=== PATIENT | female | born 1955 | race Caucasian/White ===

== ENCOUNTER 2018-05-19 11:22 | Inpatient (IN) | payer BC ==
[~2018-05-19] VITALS: Ht 162.6 cm; Wt 74.4 kg
[2018-05-19] MEDS ORDERED: ONDANSETRON ODT 4 MG ONE ×2 (11:48→18:10)
[2018-05-19] MEDS ORDERED: HYDROmorphone 2 MG/ML, 1ML ONE ×2 (11:51→12:45)
[2018-05-19] MEDS ORDERED: ONDANSETRON ODT 4 MG PO ONE (12:00)
[2018-05-19] MEDS ORDERED: HYDROmorphone 1 MG/ML, 1ML IM ONE ×2 (12:00→13:00)
[2018-05-19] MEDS ORDERED: HYDR-3307 PO (12:43)
[2018-05-19] MEDS ORDERED: SODIUM CHLORIDE 0.9% 1,000 ML IV ONE (13:49)
[2018-05-19] MEDS ORDERED: SODIUM CHLORIDE FLUSH 10ML SYR IVF ONE (14:00)
[2018-05-19] MEDS ORDERED: LORazepam 2 MG/ML, 1ML IVPush ONE (14:00)
[2018-05-19] MEDS ORDERED: DIPHENHYDRAMINE 50 MG/ML, 1ML IVPush ONE (14:00)
[2018-05-19 14:09] LABS: BASOPHILS # (AUTO) 0.05 x10^3/uL (0-0.1); BASOPHILS % (AUTO) 1 % (0-1); EOSINOPHILS # (AUTO) 0.08 x10^3/uL (0-0.4); EOSINOPHILS % (AUTO) 1 % (1-7); LYMPHOCYTES # (AUTO) 2.17 x10^3/uL (1-3.4); LYMPHOCYTES % (AUTO) 21 % (22-44); MD NO; MEAN CORPUSCULAR HEMOGLOBIN 32.6 pg (27.0-34.8); MEAN CORPUSCULAR HGB CONC 34.3 g/dL (32.4-35.8); MEAN CORPUSCULAR VOLUME 95.2 fL (80-100); MEAN PLATELET VOLUME 8.2 fL (7.4-10.4); MONOCYTES # (AUTO) 0.73 x10^3/uL (0.2-0.8); MONOCYTES % (AUTO) 7 % (2-9); NEUTROPHILS # (AUTO) 7.38 x10^3/uL (1.8-6.8); NEUTROPHILS % (AUTO) 71 % (42-75); PLATELET COUNT 226 x10^3/uL (130-400); RED BLOOD COUNT 4.66 x10^6/uL (3.82-5.3); RED CELL DISTRIBUTION WIDTH 13.5 % (9.6-15.2)
[2018-05-19 14:21] LABS: ALBUMIN 4.7 g/dL (3.4-5.0); ANION GAP 10 mmol/L (5-15); CALCIUM 9.6 mg/dL (8.5-10.1); CHLORIDE 103 mmol/L (98-107)
[2018-05-19 14:25] LABS: ALANINE AMINOTRANSFERASE 26 U/L (12-78); ALKALINE PHOSPHATASE 78 U/L (45-117); BILIRUBIN,TOTAL 0.6 mg/dL (0.2-1.0); CREATININE 0.84 mg/dL (0.55-1.02); TOTAL PROTEIN 8.5 g/dL (6.4-8.2)
[2018-05-19 14:30] LABS: INTERNATIONAL NORMALIZED RATIO 0.97 (0.93-1.1); PROTHROMBIN TIME 10.1 Seconds (9.6-11.5)
[2018-05-19] MEDS ORDERED: SODIUM CHLORIDE FLUSH 10ML SYR IVF PRN (14:30)
[2018-05-19] MEDS ORDERED: ALPR-475 PO (14:32)
[2018-05-19] MEDS ORDERED: ALPR1TAB2 PO (14:32)
[2018-05-19] MEDS ORDERED: LEVO100T PO (14:33)
[2018-05-19] MEDS ORDERED: LORazepam 2 MG/ML, 1ML ONE (15:02)
[2018-05-19] MEDS ORDERED: FENTANYL PF 100 MCG/2ML IV ONE (15:30)
[2018-05-19] MEDS ORDERED: FENTANYL PF 100 MCG/2ML ONE (15:34)
[2018-05-19 15:45] VITALS: BP 127/77
[2018-05-19] MEDS ORDERED: hydrALAzine 20 MG/ML, 1ML IV PRN (17:00)
[2018-05-19] MEDS ORDERED: ACETAMINOPHEN 325 MG TABLET PO PRN (17:00)
[2018-05-19] MEDS ORDERED: LABETALOL 5MG/ML, 20ML IV PRN (17:00)
[2018-05-19] MEDS ORDERED: FENTANYL PF 100 MCG/2ML IV PRN (17:00)
[2018-05-19] MEDS ORDERED: OXYcodone 5 MG/5 ML ORAL.SOL UDC PO PRN (17:00)
[2018-05-19] MEDS ORDERED: ONDANSETRON 2MG/ML, 2ML IV PRN (17:00)
[2018-05-19] MEDS ORDERED: HALOPERIDOL 5 MG/ML IV PRN (17:00)
[2018-05-19] MEDS ORDERED: MEPERIDINE/PF 25MG/0.5ML IVPush PRN (17:00)
[2018-05-19] MEDS ORDERED: HYDROmorphone 1 MG/ML, 1ML IV PRN ×3 (17:00→18:00)
[2018-05-19] MEDS ORDERED: HYDROmorphone 2 MG/ML, 1ML IV PRN (18:00)
[2018-05-19] MEDS: ONDANSETRON ODT 4 MG PO PRN (18:12)
[2018-05-19 18:23] VITALS: BP 122/73
[2018-05-19] MEDS: DOCUSATE 100 MG CAPSULE PO SCH (20:10)
[2018-05-19] MEDS: KETOROLAC 30 MG/1 ML IV SCH (20:10)
[2018-05-19] MEDS: HYDROcodone/APAP 10/325 MG TABLET PO PRN (20:19)
[2018-05-20 00:59] VITALS: BP 120/74
[2018-05-20] MEDS: HYDROcodone/APAP 10/325 MG TABLET PO PRN ×6 (01:03→20:37)
[2018-05-20] MEDS: KETOROLAC 30 MG/1 ML IV SCH ×2 (04:13→12:09)
[2018-05-20] MEDS: ONDANSETRON ODT 4 MG PO PRN (06:52)
[2018-05-20 07:35] VITALS: BP 115/64
[2018-05-20] MEDS: DOCUSATE 100 MG CAPSULE PO SCH ×2 (09:00→20:09)
[2018-05-20 12:55] VITALS: BP 113/65
[2018-05-20] MEDS: ONDANSETRON 2MG/ML, 2ML IVPush PRN ×2 (13:37→20:09)
[2018-05-20 19:00] VITALS: BP 146/76
[2018-05-21] MEDS: HYDROcodone/APAP 10/325 MG TABLET PO PRN ×6 (00:51→21:38)
[2018-05-21 05:08] VITALS: BP 111/68
[2018-05-21 07:20] VITALS: BP 114/72
[2018-05-21] MEDS: DOCUSATE 100 MG CAPSULE PO SCH ×2 (09:00→21:38)
[2018-05-21] MEDS: ONDANSETRON 2MG/ML, 2ML IVPush PRN ×3 (11:23→22:27)
[2018-05-21 12:48] VITALS: BP 134/79
[2018-05-21 19:54] VITALS: BP 112/70
[2018-05-22] MEDS: HYDROcodone/APAP 10/325 MG TABLET PO PRN ×6 (01:34→21:28)
[2018-05-22 02:07] VITALS: BP 112/70
[2018-05-22] MEDS: ONDANSETRON 2MG/ML, 2ML IVPush PRN ×2 (06:43→12:38)
[2018-05-22 07:17] VITALS: BP 119/73
[2018-05-22] MEDS: DOCUSATE 100 MG CAPSULE PO SCH ×2 (07:36→21:00)
[2018-05-22 12:11] VITALS: BP 143/75
[2018-05-22] MEDS: ONDANSETRON ODT 4 MG PO PRN ×2 (12:32→18:20)
[2018-05-22 19:55] VITALS: BP 108/65
[2018-05-23] MEDS: HYDROcodone/APAP 10/325 MG TABLET PO PRN ×5 (01:45→18:01)
[2018-05-23] MEDS: ONDANSETRON ODT 4 MG PO PRN ×3 (02:01→15:03)
[2018-05-23 03:38] VITALS: BP 107/69
[2018-05-23] MEDS: DOCUSATE 100 MG CAPSULE PO SCH (08:27)
[2018-05-23] MEDS ORDERED: OXYC-302 PO (09:14)
[2018-05-23] MEDS ORDERED: TRAM50TA2 PO (09:17)
[2018-05-23 09:47] VITALS: BP 126/50
[2018-05-23 15:32] VITALS: BP 102/72
== END 2018-05-23 18:05 | DRG 563 ==
LOC: ED 13:11 → EDIP 14:19 → 4NOR 15:46
PROVIDERS: ADMIT Orthopaedic Surgery; ATTEND Orthopaedic Surgery
DX: S82.144A Nondisplaced bicondylar fracture of right tibia, initial encounter for closed fracture (principal); M25.00 Hemarthrosis, unspecified joint; G61.0 Guillain-Barre syndrome; E06.3 Autoimmune thyroiditis; G89.11 Acute pain due to trauma; W18.39XA Other fall on same level, initial encounter; M54.9 Dorsalgia, unspecified; G89.29 Other chronic pain; Y93.89 Activity, other specified; Y92.89 Other specified places as the place of occurrence of the external cause; Y99.8 Other external cause status; Z90.710 Acquired absence of both cervix and uterus; Z88.6 Allergy status to analgesic agent; Z88.0 Allergy status to penicillin; Z88.8 Allergy status to other drugs, medicaments and biological substances
CPT/HCPCS: 36415; 71045; 80053; 85025; 85610; 85730; 93005; 96372; 96374; G0378; J1170; J1885; J2405; J3010; Q0162; J2060; J7030

== ENCOUNTER 2019-09-16 19:51 | Inpatient (IN) | payer BC ==
[~2019-09-16] VITALS: Ht 163.8 cm; Wt 75.1 kg
[~2019-09-16 19:51] MED LIST: ALPR0.5T7 PO; ALPR1TAB2 PO; HYDR-36 PO; LEVO100T PO; OXYC-302 PO; TRAM50TA2 PO
[2019-09-16] MEDS ORDERED: HYDROmorphone 1 MG/ML, 1ML INJ ONE (20:22)
[2019-09-16] MEDS ORDERED: ONDANSETRON 2MG/ML, 2ML ONE (20:22)
[2019-09-16] MEDS ORDERED: HYDROmorphone 2 MG/ML, 1ML IVPush PRN ×2 (20:30→23:30)
[2019-09-16] MEDS ORDERED: ONDANSETRON 2MG/ML, 2ML IVPush ONE (20:30)
--- NOTE | 2019-09-16 21:15 | NUR ---
PT RESTING IN BED. FAMILY AT BS. MONITOR IN PLACE. MEDICATED PER OCT.
--- NOTE | 2019-09-16 21:49 | NUR ---
RPT CALLED TO [facility]. PT AWAITING TRANSFER.
[2019-09-16 22:26] VITALS: BP 161/94
[2019-09-16] MEDS ORDERED: LIOT5TAB11 PO (22:48)
[2019-09-16] MEDS ORDERED: ASPI-515 PO (22:58)
[2019-09-16] MEDS ORDERED: ASPI-496 PO (22:59)
[2019-09-16] MEDS ORDERED: BISACODYL 10 MG SUPP PR PRN (23:30)
[2019-09-16] MEDS ORDERED: TEMAZEPAM 15 MG CAPSULE PO PRN (23:30)
[2019-09-16] MEDS ORDERED: LIDODERM 5% PATCH TD PRN (23:30)
[2019-09-16] MEDS: LACTATED RINGERS 1,000 ML IV SCH (23:47)
[2019-09-17] MEDS: LORazepam 2 MG/ML, 1ML IVPush PRN ×5 (00:27→23:26)
[2019-09-17 00:48] VITALS: BP 153/80
[2019-09-17] MEDS: ONDANSETRON 2MG/ML, 2ML IVPush PRN ×3 (03:49→20:17)
[2019-09-17 04:20] VITALS: BP 163/100
[2019-09-17] MEDS ORDERED: FENTANYL PF 100 MCG/2ML IV ONE (04:30)
[2019-09-17 05:39] LABS: BASOPHILS # (AUTO) 0.02 x10^3/uL (0-0.1); BASOPHILS % (AUTO) 0 % (0-1); EOSINOPHILS # (AUTO) 0.09 x10^3/uL (0-0.4); EOSINOPHILS % (AUTO) 2 % (1-7); LYMPHOCYTES # (AUTO) 1.24 x10^3/uL (1-3.4); LYMPHOCYTES % (AUTO) 21 % (22-44); MD NO; MEAN CORPUSCULAR HEMOGLOBIN 34.8 pg (27.0-34.8); MEAN CORPUSCULAR HGB CONC 33.5 g/dL (32.4-35.8); MEAN CORPUSCULAR VOLUME 104.1 fL (80-100); MEAN PLATELET VOLUME 7.2 fL (7.4-10.4); MONOCYTES # (AUTO) 0.66 x10^3/uL (0.2-0.8); MONOCYTES % (AUTO) 11 % (2-9); NEUTROPHILS # (AUTO) 4.01 x10^3/uL (1.8-6.8); NEUTROPHILS % (AUTO) 67 % (42-75); PLATELET COUNT 185 x10^3/uL (130-400); RED BLOOD COUNT 4.06 x10^6/uL (3.82-5.3); RED CELL DISTRIBUTION WIDTH 16.3 % (9.6-15.2)
[2019-09-17 05:48] LABS: ALBUMIN 3.4 g/dL (3.4-5.0); ANION GAP 10 mmol/L (5-15); CALCIUM 8.3 mg/dL (8.5-10.1); CHLORIDE 108 mmol/L (98-107)
[2019-09-17 05:53] LABS: ALANINE AMINOTRANSFERASE 57 U/L (12-78); ALKALINE PHOSPHATASE 155 U/L (45-117); BILIRUBIN,TOTAL 1.5 mg/dL (0.2-1.0); CREATININE 0.62 mg/dL (0.55-1.02); TOTAL PROTEIN 6.6 g/dL (6.4-8.2)
[2019-09-17 08:02] VITALS: BP 162/88
[2019-09-17] MEDS ORDERED: morphine SULFATE/PF 0.5 MG/ML, 10ML IV PRN (08:30)
[2019-09-17] MEDS ORDERED: POTASSIUM CHLORIDE 20 MEQ in SODIUM CHLORIDE 0.9% 250 ML IV ONE (09:00)
[2019-09-17] MEDS: MORPHINE SULFATE 4 MG/ML, 1ML IV PRN ×5 (09:41→23:27)
[2019-09-17] MEDS: LACTATED RINGERS 1,000 ML IV SCH ×2 (12:45→21:44)
[2019-09-17 13:56] VITALS: BP 158/83
[2019-09-17 19:12] VITALS: BP 134/80
[2019-09-18 02:04] VITALS: BP 155/96
[2019-09-18] MEDS: ONDANSETRON 2MG/ML, 2ML IVPush PRN ×4 (02:09→23:06)
[2019-09-18] MEDS: MORPHINE SULFATE 4 MG/ML, 1ML IV PRN ×7 (02:09→23:06)
[2019-09-18] MEDS: LORazepam 2 MG/ML, 1ML IVPush PRN ×2 (03:24→07:59)
[2019-09-18] MEDS: LACTATED RINGERS 1,000 ML IV SCH ×3 (05:47→19:56)
[2019-09-18 05:53] LABS: ALBUMIN 3.2 g/dL (3.4-5.0); ANION GAP 15 mmol/L (5-15); CALCIUM 8.3 mg/dL (8.5-10.1); CHLORIDE 104 mmol/L (98-107)
[2019-09-18 06:01] LABS: ALANINE AMINOTRANSFERASE 46 U/L (12-78); ALKALINE PHOSPHATASE 136 U/L (45-117); BILIRUBIN,TOTAL 1.4 mg/dL (0.2-1.0); CHOL/HDL RATIO 3.6; CHOLESTEROL, TOTAL 210 mg/dL (140-239); CREATININE 0.49 mg/dL (0.55-1.02); HDL CHOL % 28 % (28-40); HDL CHOLESTEROL (DIRECT) 58 mg/dL (40-60); LDL CHOLESTEROL,CALCULATED 125 mg/dL (54-169); LDL/HDL RATIO 2.2 (0.5-3.0); TOTAL PROTEIN 6.2 g/dL (6.4-8.2); TRIGLYCERIDES 133 mg/dL (50-200); VLDL CHOLESTEROL 27 mg/dL (0-25)
[2019-09-18 06:22] LABS: MEAN CORPUSCULAR HEMOGLOBIN 34.4 pg (27.0-34.8); MEAN CORPUSCULAR HGB CONC 33.2 g/dL (32.4-35.8); MEAN CORPUSCULAR VOLUME 103.6 fL (80-100); PLATELET COUNT 180 x10^3/uL (130-400); RED BLOOD COUNT 4.04 x10^6/uL (3.82-5.3); RED CELL DISTRIBUTION WIDTH 15.6 % (9.6-15.2)
[2019-09-18 06:23] LABS: BASOPHILS # (AUTO) 0.06 x10^3/uL (0-0.1); BASOPHILS % (AUTO) 1 % (0-1); EOSINOPHILS # (AUTO) 0.14 x10^3/uL (0-0.4); EOSINOPHILS % (AUTO) 2 % (1-7); LYMPHOCYTES % (AUTO) 20 % (22-44); MD SCAN; MONOCYTES # (AUTO) 0.92 x10^3/uL (0.2-0.8); MONOCYTES % (AUTO) 11 % (2-9); NEUTROPHILS # (AUTO) 5.64 x10^3/uL (1.8-6.8); NEUTROPHILS % (AUTO) 67 % (42-75)
[2019-09-18] MEDS ORDERED: POTASSIUM CHLORIDE 40 MEQ in SODIUM CHLORIDE 0.9% 500 ML IV ONE (06:30)
[2019-09-18 08:59] VITALS: BP 153/90
[2019-09-18] MEDS ORDERED: PROMETHAZINE 25 MG/ML, 1ML IM PRN (12:30)
[2019-09-18] MEDS: MAGNESIUM OXIDE 400 MG TABLET PO SCH ×2 (13:30→20:12)
[2019-09-18 14:19] VITALS: BP 146/85
[2019-09-18] MEDS ORDERED: OMNIPAQUE 350 MG/ML, 100ML BOTTLE ONE (14:45)
[2019-09-18] MEDS: POTASSIUM CHLORIDE 20 MEQ TAB.ER.PRT PO SCH (17:00)
[2019-09-18 20:07] VITALS: BP 157/88
[2019-09-18 22:03] LABS: OCCULT BLOOD NEGATIVE (NEGATIVE)
[2019-09-19 01:20] VITALS: BP 145/91
[2019-09-19] MEDS ORDERED: LORazepam 2 MG/ML, 1ML IVPush ONE (02:00)
[2019-09-19] MEDS: LACTATED RINGERS 1,000 ML IV SCH ×2 (04:39→14:00)
[2019-09-19] MEDS ORDERED: ZIPRASIDONE 20 MG INJ IM ONE (06:00)
[2019-09-19] MEDS ORDERED: LORazepam 2 MG/ML, 1ML IV PRN ×4 (07:30)
[2019-09-19] MEDS ORDERED: FOLIC ACID 5 MG/ML IM ONE (07:30)
[2019-09-19] MEDS ORDERED: THIAMINE 200 MG in DEXTROSE 5% 50 ML IVPB ONE (07:30)
[2019-09-19 08:47] LABS: BASOPHILS # (AUTO) 0.02 x10^3/uL (0-0.1); BASOPHILS % (AUTO) 0 % (0-1); EOSINOPHILS # (AUTO) 0.04 x10^3/uL (0-0.4); EOSINOPHILS % (AUTO) 1 % (1-7); LYMPHOCYTES # (AUTO) 0.76 x10^3/uL (1-3.4); LYMPHOCYTES % (AUTO) 10 % (22-44); MD NO; MEAN CORPUSCULAR HEMOGLOBIN 34.5 pg (27.0-34.8); MEAN CORPUSCULAR HGB CONC 33.3 g/dL (32.4-35.8); MEAN CORPUSCULAR VOLUME 103.9 fL (80-100); MEAN PLATELET VOLUME 7.6 fL (7.4-10.4); MONOCYTES # (AUTO) 0.99 x10^3/uL (0.2-0.8); MONOCYTES % (AUTO) 13 % (2-9); NEUTROPHILS # (AUTO) 5.74 x10^3/uL (1.8-6.8); NEUTROPHILS % (AUTO) 76 % (42-75); PLATELET COUNT 175 x10^3/uL (130-400); RED BLOOD COUNT 4.09 x10^6/uL (3.82-5.3); RED CELL DISTRIBUTION WIDTH 15.6 % (9.6-15.2)
[2019-09-19] MEDS: POTASSIUM CHLORIDE 20 MEQ TAB.ER.PRT PO SCH ×2 (08:51→16:43)
[2019-09-19] MEDS: MAGNESIUM OXIDE 400 MG TABLET PO SCH ×2 (08:51→20:12)
[2019-09-19 08:53] LABS: ALANINE AMINOTRANSFERASE 48 U/L (12-78); ALBUMIN 3.6 g/dL (3.4-5.0); ANION GAP 15 mmol/L (5-15); CALCIUM 8.8 mg/dL (8.5-10.1); CHLORIDE 103 mmol/L (98-107); CREATININE 0.59 mg/dL (0.55-1.02)
[2019-09-19 08:58] LABS: ALKALINE PHOSPHATASE 138 U/L (45-117); BILIRUBIN,TOTAL 1.4 mg/dL (0.2-1.0); TOTAL PROTEIN 6.8 g/dL (6.4-8.2)
[2019-09-19 09:01] VITALS: BP 160/94
[2019-09-19] MEDS: CHLORDIAZEPOXIDE 25 MG CAPSULE PO SCH ×4 (09:54→21:11)
[2019-09-19] MEDS ORDERED: POTASSIUM CHLORIDE 40 MEQ in SODIUM CHLORIDE 0.9% 500 ML IV ONE (15:30)
[2019-09-19 20:03] VITALS: BP 130/87
[2019-09-19 22:39] LABS: OCCULT BLOOD NEGATIVE (NEGATIVE)
[2019-09-19 22:55] LABS: CLOSTRIDIUM DIFFICILE ANTIGEN NEGATIVE; CLOSTRIDIUM DIFFICILE TOXIN NEGATIVE (Negative)
[2019-09-19] MEDS: LORazepam 2 MG/ML, 1ML IV PRN (23:34)
[2019-09-20] MEDS: MORPHINE SULFATE 4 MG/ML, 1ML IV PRN ×5 (00:38→20:36)
[2019-09-20 02:56] VITALS: BP 133/81
[2019-09-20] MEDS: CHLORDIAZEPOXIDE 25 MG CAPSULE PO SCH ×2 (06:09→12:07)
[2019-09-20] MEDS: LACTATED RINGERS 1,000 ML IV SCH ×3 (06:09→20:50)
[2019-09-20 06:14] LABS: BASOPHILS # (AUTO) 0.03 x10^3/uL (0-0.1); BASOPHILS % (AUTO) 1 % (0-1); EOSINOPHILS # (AUTO) 0.19 x10^3/uL (0-0.4); EOSINOPHILS % (AUTO) 3 % (1-7); LYMPHOCYTES # (AUTO) 1.41 x10^3/uL (1-3.4); LYMPHOCYTES % (AUTO) 24 % (22-44); MD NO; MEAN CORPUSCULAR HEMOGLOBIN 34.1 pg (27.0-34.8); MEAN CORPUSCULAR HGB CONC 32.9 g/dL (32.4-35.8); MEAN CORPUSCULAR VOLUME 103.8 fL (80-100); MEAN PLATELET VOLUME 8.1 fL (7.4-10.4); MONOCYTES # (AUTO) 0.67 x10^3/uL (0.2-0.8); MONOCYTES % (AUTO) 11 % (2-9); NEUTROPHILS # (AUTO) 3.63 x10^3/uL (1.8-6.8); NEUTROPHILS % (AUTO) 61 % (42-75); PLATELET COUNT 166 x10^3/uL (130-400); RED BLOOD COUNT 3.87 x10^6/uL (3.82-5.3); RED CELL DISTRIBUTION WIDTH 15.3 % (9.6-15.2)
[2019-09-20 06:18] LABS: CHLORIDE 107 mmol/L (98-107)
[2019-09-20 06:41] LABS: ALANINE AMINOTRANSFERASE 38 U/L (12-78); ALBUMIN 2.9 g/dL (3.4-5.0); ALKALINE PHOSPHATASE 110 U/L (45-117); ANION GAP 11 mmol/L (5-15); BILIRUBIN,TOTAL 1.1 mg/dL (0.2-1.0); CALCIUM 8.4 mg/dL (8.5-10.1); CREATININE 0.45 mg/dL (0.55-1.02)
[2019-09-20] MEDS: LORazepam 2 MG/ML, 1ML IV PRN (08:00)
[2019-09-20] MEDS: POTASSIUM CHLORIDE 20 MEQ TAB.ER.PRT PO SCH (08:01)
[2019-09-20] MEDS: MAGNESIUM OXIDE 400 MG TABLET PO SCH ×2 (08:01→20:36)
[2019-09-20 08:09] VITALS: BP 158/88
[2019-09-20] MEDS ORDERED: POTASSIUM CHLORIDE 20 MEQ TAB.ER.PRT PO SCH (14:00)
[2019-09-20] MEDS ORDERED: LOPERAMIDE 2 MG CAPSULE PO PRN (14:00)
[2019-09-20] MEDS ORDERED: POTASSIUM CHLORIDE 20 MEQ TAB.ER.PRT PO ONE ×2 (14:00→17:00)
[2019-09-20] MEDS: OMEPRAZOLE 20 MG CAPSULE.DR PO SCH ×2 (14:14→20:36)
[2019-09-20] MEDS: ONDANSETRON 2MG/ML, 2ML IVPush PRN (14:14)
[2019-09-20 17:11] VITALS: BP 160/88
[2019-09-20 19:22] VITALS: BP 152/85
[2019-09-20] MEDS ORDERED: CHLORDIAZEPOXIDE 25 MG CAPSULE PO SCH (21:00)
[2019-09-21 01:58] VITALS: BP 136/87
[2019-09-21] MEDS: MORPHINE SULFATE 4 MG/ML, 1ML IV PRN ×3 (02:03→17:48)
[2019-09-21] MEDS: LACTATED RINGERS 1,000 ML IV SCH (05:09)
[2019-09-21 05:28] LABS: ALANINE AMINOTRANSFERASE 36 U/L (12-78); ANION GAP 8 mmol/L (5-15); CALCIUM 8.4 mg/dL (8.5-10.1); CHLORIDE 104 mmol/L (98-107); CREATININE 0.44 mg/dL (0.55-1.02)
[2019-09-21 05:31] LABS: ALKALINE PHOSPHATASE 104 U/L (45-117); BILIRUBIN,TOTAL 1.2 mg/dL (0.2-1.0); TOTAL PROTEIN 6.3 g/dL (6.4-8.2)
[2019-09-21 05:40] LABS: BASOPHILS # (AUTO) 0.03 x10^3/uL (0-0.1); BASOPHILS % (AUTO) 1 % (0-1); EOSINOPHILS # (AUTO) 0.27 x10^3/uL (0-0.4); EOSINOPHILS % (AUTO) 5 % (1-7); LYMPHOCYTES # (AUTO) 1.08 x10^3/uL (1-3.4); LYMPHOCYTES % (AUTO) 19 % (22-44); MD NO; MEAN CORPUSCULAR HEMOGLOBIN 34.4 pg (27.0-34.8); MEAN CORPUSCULAR HGB CONC 33.4 g/dL (32.4-35.8); MEAN PLATELET VOLUME 8.2 fL (7.4-10.4); MONOCYTES % (AUTO) 16 % (2-9); NEUTROPHILS # (AUTO) 3.33 x10^3/uL (1.8-6.8); NEUTROPHILS % (AUTO) 59 % (42-75); PLATELET COUNT 208 x10^3/uL (130-400); RED BLOOD COUNT 3.88 x10^6/uL (3.82-5.3); RED CELL DISTRIBUTION WIDTH 15.4 % (9.6-15.2)
[2019-09-21] MEDS: LEVOTHYROXINE 88 MCG TABLET PO SCH ×2 (06:26→07:12)
[2019-09-21] MEDS: ONDANSETRON 2MG/ML, 2ML IVPush PRN ×2 (06:45→15:30)
[2019-09-21] MEDS: LIOTHYRONINE 5 MCG TABLET PO SCH ×3 (07:40→19:32)
[2019-09-21 08:00] VITALS: BP 158/80
[2019-09-21] MEDS: POTASSIUM CHLORIDE 20 MEQ TAB.ER.PRT PO ONE ×4 (08:30→11:47)
[2019-09-21] MEDS ORDERED: POTASSIUM CHLORIDE 20 MEQ in LACTATED RINGERS 1,000 ML IV SCH (08:30)
[2019-09-21] MEDS ORDERED: LEVOTHYROXINE 88 MCG TABLET PO SCH (09:00)
[2019-09-21] MEDS: OMEPRAZOLE 20 MG CAPSULE.DR PO SCH ×2 (09:10→19:31)
[2019-09-21] MEDS: MAGNESIUM OXIDE 400 MG TABLET PO SCH ×2 (09:10→19:31)
[2019-09-21] MEDS ORDERED: CHLORDIAZEPOXIDE 25 MG CAPSULE PO SCH ×2 (10:00→21:00)
[2019-09-21] MEDS: HYDROcodone/APAP 10/325 MG TABLET PO PRN ×2 (13:19→19:32)
[2019-09-21 14:26] VITALS: BP 146/87
[2019-09-21] MEDS ORDERED: POTASSIUM CHLORIDE 20 MEQ TAB.ER.PRT PO ONE (14:30)
[2019-09-21 18:56] LABS: ANION GAP 10 mmol/L (5-15); CALCIUM 8.8 mg/dL (8.5-10.1); CHLORIDE 102 mmol/L (98-107)
[2019-09-21 18:57] LABS: CREATININE 0.49 mg/dL (0.55-1.02)
[2019-09-21 19:19] VITALS: BP 132/82
[2019-09-22 00:54] VITALS: BP 148/91
[2019-09-22] MEDS: MORPHINE SULFATE 4 MG/ML, 1ML IV PRN (01:01)
[2019-09-22] MEDS: HYDROcodone/APAP 10/325 MG TABLET PO PRN ×3 (05:01→16:13)
[2019-09-22 06:08] LABS: ALANINE AMINOTRANSFERASE 37 U/L (12-78); ANION GAP 11 mmol/L (5-15); CALCIUM 8.6 mg/dL (8.5-10.1); CHLORIDE 106 mmol/L (98-107); CREATININE 0.47 mg/dL (0.55-1.02)
[2019-09-22 06:10] LABS: ALKALINE PHOSPHATASE 105 U/L (45-117); BILIRUBIN,TOTAL 0.9 mg/dL (0.2-1.0); TOTAL PROTEIN 6.3 g/dL (6.4-8.2)
[2019-09-22 06:48] LABS: BASOPHILS # (AUTO) 0.11 x10^3/uL (0-0.1); BASOPHILS % (AUTO) 2 % (0-1); EOSINOPHILS # (AUTO) 0.24 x10^3/uL (0-0.4); EOSINOPHILS % (AUTO) 5 % (1-7); LYMPHOCYTES # (AUTO) 0.84 x10^3/uL (1-3.4); LYMPHOCYTES % (AUTO) 19 % (22-44); MD NO; MEAN CORPUSCULAR HEMOGLOBIN 34.7 pg (27.0-34.8); MEAN CORPUSCULAR HGB CONC 33.8 g/dL (32.4-35.8); MEAN CORPUSCULAR VOLUME 102.7 fL (80-100); MEAN PLATELET VOLUME 7.8 fL (7.4-10.4); MONOCYTES # (AUTO) 0.77 x10^3/uL (0.2-0.8); MONOCYTES % (AUTO) 17 % (2-9); NEUTROPHILS # (AUTO) 2.58 x10^3/uL (1.8-6.8); NEUTROPHILS % (AUTO) 57 % (42-75); PLATELET COUNT 237 x10^3/uL (130-400); RED BLOOD COUNT 3.86 x10^6/uL (3.82-5.3); RED CELL DISTRIBUTION WIDTH 15.8 % (9.6-15.2)
[2019-09-22 07:04] VITALS: BP 147/87
[2019-09-22] MEDS ORDERED: CHLORDIAZEPOXIDE 25 MG CAPSULE PO SCH (09:00)
[2019-09-22] MEDS: ONDANSETRON 2MG/ML, 2ML IVPush PRN (10:27)
[2019-09-22] MEDS: LEVOTHYROXINE 88 MCG TABLET PO SCH (10:28)
[2019-09-22] MEDS: LIOTHYRONINE 5 MCG TABLET PO SCH (10:28)
[2019-09-22] MEDS: MAGNESIUM OXIDE 400 MG TABLET PO SCH (10:28)
[2019-09-22] MEDS: OMEPRAZOLE 20 MG CAPSULE.DR PO SCH (10:28)
[2019-09-22] MEDS ORDERED: LORazepam 2 MG/ML, 1ML IVPush ONE (10:30)
[2019-09-22] MEDS ORDERED: FLUO20CA19 PO (10:33)
[2019-09-22] MEDS ORDERED: HYDR-826 PO (10:33)
[2019-09-22] MEDS ORDERED: ONDA4TAB7 PO (10:33)
[2019-09-22] MEDS ORDERED: OMEP-110 PO (10:33)
[2019-09-22 13:37] VITALS: BP 128/73
== END 2019-09-22 17:40 | disposition home or self-care (01) | DRG 432 ==
LOC: ED 20:40 → EDIP 20:49 → ED 22:01 → 3N 22:14 → DCLOUNGE 09-22 16:44
PROVIDERS: ADMIT Family Medicine; ATTEND Hospitalist
DX: K70.10 Alcoholic hepatitis without ascites (principal); K85.90 Acute pancreatitis without necrosis or infection, unspecified; G61.0 Guillain-Barre syndrome; F10.239 Alcohol dependence with withdrawal, unspecified; G89.29 Other chronic pain; Z90.710 Acquired absence of both cervix and uterus; Z72.89 Other problems related to lifestyle; K83.8 Other specified diseases of biliary tract; E03.9 Hypothyroidism, unspecified; T40.605A Adverse effect of unspecified narcotics, initial encounter; E83.42 Hypomagnesemia; K52.9 Noninfective gastroenteritis and colitis, unspecified; K82.4 Cholesterolosis of gallbladder; Y90.9 Presence of alcohol in blood, level not specified; E66.9 Obesity, unspecified; E87.6 Hypokalemia; M54.2 Cervicalgia; Z80.51 Family history of malignant neoplasm of kidney; Z87.891 Personal history of nicotine dependence; Z88.0 Allergy status to penicillin; Z88.5 Allergy status to narcotic agent; Z88.8 Allergy status to other drugs, medicaments and biological substances; Z79.891 Long term (current) use of opiate analgesic; Y92.89 Other specified places as the place of occurrence of the external cause; Z68.28 Body mass index [BMI] 28.0-28.9, adult
CPT/HCPCS: 36415; 74177; 74181; 80048; 80053; 80061; 82272; 83690; 83735; 84100; 84443; 85025; 87324; 96374; 96375; G0378; J1170; J2405; J2550; J3010; J3411; J3480; J3486; Q9967; J2060; J2270; J7040; J7050; J7120

== ENCOUNTER 2021-05-23 18:46 | Inpatient (IN) | payer BC ==
[~2021-05-23] VITALS: Ht 162.6 cm; Wt 68.9 kg
[2021-05-27 15:53] VITALS: BP 139/86
== END 2021-05-27 19:00 | disposition home or self-care (01) | DRG 563 ==
LOC: ED 19:00 → EDIP 23:22 → 3N 23:58 → OBSVTOIN 05-24 10:30
PROVIDERS: ADMIT Family Medicine; ATTEND Hospitalist
DX: S42.292A Other displaced fracture of upper end of left humerus, initial encounter for closed fracture (principal); F11.20 Opioid dependence, uncomplicated; G89.21 Chronic pain due to trauma; F10.220 Alcohol dependence with intoxication, uncomplicated; J45.909 Unspecified asthma, uncomplicated; K59.00 Constipation, unspecified; W01.0XXA Fall on same level from slipping, tripping and stumbling without subsequent striking against object, initial encounter; Y93.01 Activity, walking, marching and hiking; Y92.89 Other specified places as the place of occurrence of the external cause; Y99.8 Other external cause status; Z87.891 Personal history of nicotine dependence; Z90.710 Acquired absence of both cervix and uterus